=== PATIENT | female | born 2000 | race Caucasian/White ===

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

== ENCOUNTER 2023-07-06 03:25 | Emergency (ER) | payer MEDICAID, OTHER ==
[~2023-07-06] VITALS: Ht 162.6 cm; Wt 50.0 kg
[~2023-07-06 03:25] MED LIST changes: +ALBU8.5H17 IH; -ALBU8.5H8 IH; +FAMO-128 PO; +NO HOME MEDS; +ONDA4TAB6 PO; +SUCR1ORA2 PO
[2023-07-06 03:42] VITALS: BP 111/81; PULSE 74; RESP 18
== END 2023-07-06 04:56 ==
LOC: ER 03:25
DX: Z02.89 Encounter for other administrative examinations (principal); F10.129 Alcohol abuse with intoxication, unspecified; F17.200 Nicotine dependence, unspecified, uncomplicated; F12.90 Cannabis use, unspecified, uncomplicated; Z68.1 Body mass index [BMI] 19.9 or less, adult; Z79.899 Other long term (current) drug therapy; Z90.49 Acquired absence of other specified parts of digestive tract
CPT/HCPCS: 99283

== ENCOUNTER 2023-10-16 15:14 | Emergency (ER) | payer MEDICAID, OTHER ==
[~2023-10-16] VITALS: Ht 157.5 cm; Wt 52.3 kg
[2023-10-16 17:26] VITALS: BP 126/69; PULSE 70; RESP 16; TEMP 98.6; O2SAT 98
== END 2023-10-16 17:27 | disposition home or self-care (01) ==
LOC: ER 15:15
DX: O9A.211 Injury, poisoning and certain other consequences of external causes complicating pregnancy, first trimester (principal); S30.1XXA Contusion of abdominal wall, initial encounter; F12.10 Cannabis abuse, uncomplicated; V49.9XXA Car occupant (driver) (passenger) injured in unspecified traffic accident, initial encounter; Y93.89 Activity, other specified; Y92.89 Other specified places as the place of occurrence of the external cause; Y99.8 Other external cause status
CPT/HCPCS: 76801; 93976; 99284